=== PATIENT | female | born 1950 | race Caucasian/White ===

== ENCOUNTER → 2024-03-04 08:13 | Outpatient (REF) | payer MEDICARE, BC, SELFPAY | LOC: HWRAD 08:13 | PROVIDERS: ATTENDING PHYSICIAN Nurse Practitioner Adult Health; FAMILY PHYSICIAN Nurse Practitioner | DX: N95.0 Postmenopausal bleeding (principal) | CPT/HCPCS: 76830; 76856 ==

== ENCOUNTER → 2024-06-20 08:45 | Outpatient (REF) | payer MEDICARE, BC, SELFPAY | LOC: CLAB 08:45 | PROVIDERS: ATTENDING PHYSICIAN Obstetrics & Gynecology Gynecology | DX: N95.0 Postmenopausal bleeding (principal) | CPT/HCPCS: 88305 ==

== ENCOUNTER → 2024-07-15 07:54 | Outpatient (REF) | payer MEDICARE, BC, SELFPAY | LOC: HWRCS 07:54 | PROVIDERS: ATTENDING PHYSICIAN Nurse Practitioner | DX: R01.1 Cardiac murmur, unspecified (principal) | CPT/HCPCS: 93306 ==

== ENCOUNTER → 2024-07-24 12:56 | Outpatient (REF) | payer MEDICARE, BC, SELFPAY | LOC: HWRAD 12:56 | PROVIDERS: ATTENDING PHYSICIAN Nurse Practitioner | DX: Z87.891 Personal history of nicotine dependence (principal); Z12.31 Encounter for screening mammogram for malignant neoplasm of breast | CPT/HCPCS: 71271 ==

== ENCOUNTER 2025-07-22 14:06 | Emergency (ER) | payer MEDICARE, BC, SELFPAY ==
[2025-07-22] VITALS (7 sets, daily range): BP systolic 120–135; BP diastolic 49–73
[2025-07-22 14:41] LABS: Hematocrit 40.4 % (37.0-47.0); Hemoglobin 13.4 g/dL (12.0-16.0); Mean Corp Hgb Conc. 33.2 g/dL (33.0-37.0); Mean Corpuscular Volume 91.4 fL (81.0-99.0); Nucleated Red Blood Cells % 0 %; Platelet Count 203 10^3/uL (130-400); Red Cell Dist. Width 12.5 % (11.5-14.5)
[2025-07-22 15:04] LABS: Troponin I < 0.012 ng/ml
[2025-07-22 15:14] LABS: ALT (SGPT) 12 U/L (0-35); AST (SGOT) 15 U/L (14-36); Albumin 3.8 g/dl (3.5-5.0); Alkaline Phosphatase 58 U/L (38-126); Blood Urea Nitrogen 21 mg/dl (7-17); Calcium 9.5 mg/dl (8.4-10.2); Carbon Dioxide 28 mmol/L (22-30); Chloride 106 mmol/L (98-107); Estimated Creatinine Clearance 62 ml/min; Glucose 96 mg/dl (70-99); Potassium 4.0 mmol/L (3.5-5.1); Sodium 137 mmol/L (135-145); Total Protein 6.3 g/dl (6.3-8.2); eGFR > 60.00
--- NOTE | 2025-07-22 15:48 | ED.GENMED ---
History of Present Illness
<AMBROSIO Bennett - Last Filed: 07/22/25 16:55>
General
Chief Complaint: Fainting/Passed Out
Source: patient and spouse
Exam Limitations: none
Time Seen by Provider: 07/22/25 15:18
Nursing documentation reviewed up to this point in time: agreed with
History of Present Illness
History of Present Illness:
Patient is a 74 year old female with no significant PMH who presents to the ED via EMS following a syncopal episode at home. She states she felt dizzy following a shower and was able to safely make it to the bed before losing consciousness.
states a brief episode of unconsciousness before a return to baseline. There was no postictal period reported. Patient reports a similar incident approximately one year ago and currently follows with cardiology.
Past History
<AMBROSIO Bennett - Last Filed: 07/22/25 16:55>
Past History
ED Past Surgical History: (x2)
Patient has exhibited threatening behavior?: No
Social History
Drug: None
Personal:
Living: with family
Review of Systems
<AMBROSIO Bennett - Last Filed: 07/22/25 16:55>
Review of Systems
Allergies reviewed?: Yes
All Other Systems: ROS reviewed and negative except as documented in HPI and ROS
Constitutional: Reports no symptoms
EENT: Reports no symptoms
Respiratory: Reports no symptoms
Cardiac: Reports syncope; Denies chest pain, diaphoresis or palpitations
ABD/GI: Reports no symptoms
: Reports no symptoms
Musculoskeletal: Reports no symptoms
Skin: Reports no symptoms
Neurological: Reports no symptoms
Phy Exam
<AMBROSIO Bennett - Last Filed: 07/22/25 16:55>
General Physical Exam
General Presentation: no apparent distress
General Skin: warm and dry
General Habitus: normal
General Mental: alert
Cardiovascular Exam
Cardiovascular Exam: regular rate/rhythm and systolic murmur (mitral regurgitation)
Systolic Murmur: 2/6
Heart Sounds: normal
Pulmonary Exam
Pulmonary Exam: lungs clear and no respiratory distress
Oxygen Status: room air
Cough: no cough
Neurological Exam
Neurological Exam: oriented x3
Course
<AMBROSIO Bennett - Last Filed: 07/22/25 16:55>
Orders/Labs/Results
Orders:
Orders
07/22/25 14:08
Electrocardiogram (*1) Urgent
Reason for Study: Syncope
07/22/25 14:09
EKG- Treatment ONCE
07/22/25 14:18
CMP [Comprehensive Metabolic Panel] Urgent
Complete Blood Count/With Diff Urgent
Troponin I Urgent
Abnormal Lab Results
07/22/25
14:18
MPV 11.6 H fL
(7.4-10.4)
Absolute Lymphs (auto) 1.0 L 10^3/uL
(1.2-3.4)
Neutrophils % 75.6 H %
(42.2-75.2)
Lymphocytes % 14.5 L %
(20.5-51.1)
BUN 21 H mg/dl
(7-17)
07/22/25 14:18
07/22/25 14:18
Vital Signs
Initial and Last Documented VS:
Initial Vital Signs
Pulse Resp
65 16
07/22/25 14:09 07/22/25 14:09
Last Documented Vital Signs
Temp Pulse Resp BP Pulse Ox
36.6 C 69 20 129/62 99
07/22/25 16:30 07/22/25 16:45 07/22/25 16:45 07/22/25 16:00 07/22/25 16:45
<Sourav Palomino MD - Last Filed: 07/22/25 20:35>
Orders/Labs/Results
Orders:
Orders
07/22/25 14:08
Electrocardiogram (*1) Urgent
Reason for Study: Syncope
07/22/25 14:09
EKG- Treatment ONCE
07/22/25 14:18
CMP [Comprehensive Metabolic Panel] Urgent
Complete Blood Count/With Diff Urgent
Troponin I Urgent
Abnormal Lab Results
07/22/25
14:18
MPV 11.6 H fL
(7.4-10.4)
Absolute Lymphs (auto) 1.0 L 10^3/uL
(1.2-3.4)
Neutrophils % 75.6 H %
(42.2-75.2)
Lymphocytes % 14.5 L %
(20.5-51.1)
BUN 21 H mg/dl
(7-17)
07/22/25 14:18
07/22/25 14:18
Vital Signs
Initial and Last Documented VS:
Initial Vital Signs
Pulse Resp
65 16
07/22/25 14:09 07/22/25 14:09
Last Documented Vital Signs
Temp Pulse Resp BP Pulse Ox
36.6 C 69 20 129/62 99
07/22/25 16:30 07/22/25 16:45 07/22/25 16:45 07/22/25 16:00 07/22/25 16:45
<AMBROSIO Bennett - Last Filed: 07/22/25 16:55>
MDM/Problems Addressed
Differential Diagnosis Includes:
vasovagal syncope, dehydration, arrhythmia, seizure, hypoglycemia
<AMBROSIO Bennett - Last Filed: 07/22/25 16:55>
*Pulse Oximetry
SaO2: 100
Oxygen Mode of Delivery: Room air
Patient hypoxic: no
*Critical Care Note
Total Time (30-74mins, 75-104mins- exclusive of procedures): Not Applicable
ED Attending Note
<AMBROSIO Bennett - Last Filed: 07/22/25 16:55>
-
Portions of this chart may have been created with voice recognition software.� Occasional wrong word or��sound alike� substitutions may have occurred due to the inherent limitations of voice recognition software.
<Sourav Palomino MD - Last Filed: 07/22/25 20:35>
ED Attending Note
ED Attending Note:
Student note�for learning purposes only. Please see separate note written by me for documentation purposes.
Discharge Plan
Departure
Patient Disposition: Home (Routine Discharge)
Date of Disposition: 07/22/25
Time of Disposition: 16:49
Patient with high blood pressure during this ER visit?: No
Discharge Problem:
Syncope
Instructions: Syncope (Fainting) (DC)
Referrals:
Sherine Marlow CRNP [Family Provider, General] - Follow up in 1 week
Activity Restrictions/Additional Instructions:
Thank you for visiting the Emergency Department at [facility].
1. Please schedule a follow up appointment as directed. Call first thing tomorrow morning to make an appointment.
2. If indicated, please take your medications as instructed and indicated on discharge paperwork.
3. If any of your symptoms do not improve, or persist, or become more severe within 6-12 hours, please return to the emergency department for further care.
4. Please return to the emergency department if you develop a headache, neck pain/stiffness, fever greater than 100.4F, chest pain, shortness of breath, persistent nausea, vomiting, slurred speech, difficulty walking, numbness/tingling, weakness,
signs of infection or any other symptoms that are worrisome to you.
Please call [phone] if you have any questions.
Interventions
Interventions:
*Risk Screen - Suicide Last Done: 07/22/25 14:13
*General Assessment Last Done: 07/22/25 14:13
*Neglect/Abuse Screening Last Done: 07/22/25 14:13
*ED- Fall Risk Assessment Last Done: 07/22/25 14:13
*ED COVID-19 Vaccine History Last Done: 07/22/25 14:13
*Nursing Disposition Last Done: 07/22/25 17:01
ED- Cardiac Assessment Last Done: 07/22/25 14:15
ED- Neurological Assessment Last Done: 07/22/25 14:15
Discharge Date and Time
Discharge Date/Time: 07/22/25 17:02
Print Language: BOLIVIAN
--- NOTE | 2025-07-22 20:35 | ED.GENMED ---
History of Present Illness
General
Chief Complaint: Fainting/Passed Out
Source: patient and spouse
Exam Limitations: none
Time Seen by Provider: 07/22/25 15:18
Nursing documentation reviewed up to this point in time: agreed with
History of Present Illness
History of Present Illness:
74-year-old female with no reported chronic medical issues presents to the ER for evaluation after syncopal episode. Patient reports that she was in her normal state of health this morning, went for a walk with her . She says that she took
a shower and when she got out of the shower she was sitting on the toilet putting on lotion when she began to feel lightheaded. She got up and walked to her bed and when she got to the bed she felt lightheaded and passed out backwards onto the bed.
Did not fall or have any traumatic injury. heard her and came to the room and found her on the bed says that she was passed out for 5 to 10 seconds. called EMS, says shortly thereafter patient was up and walking around. Per EMS
on their arrival patient did have some dizziness with positional changes. Patient denies any associated headache, chest pain, palpitations. She denies feeling short of breath. Here in the emergency room she is completely asymptomatic and says
that she feels fine. She has never had similar symptoms in the past. There was no report of tongue biting, says that he did notice some jerking of the arms but patient says that she remembers the event and there was no described postictal
period.
Past History
Past History
ED Past Surgical History: (x2)
Patient has exhibited threatening behavior?: No
Social History
Drug: None
Personal:
Living: with family
Review of Systems
Review of Systems
All Other Systems: ROS reviewed and negative except as documented in HPI and ROS
Constitutional: Denies fever
Respiratory: Denies trouble breathing
Cardiac: Reports syncope; Denies chest pain or palpitations
ABD/GI: Denies abdominal pain, nausea or vomiting
: Denies flank pain
Musculoskeletal: Denies neck pain or back pain
Neurological: Denies headache, weakness or numbness
Phy Exam
Physical Exam
Physical Exam:
General: Awake, alert, oriented x3; no acute distress
Head: Normocephalic, atraumatic
Eyes: Conjunctiva normal, EOMI, pupils equal round and reactive to light bilaterally
Throat: Airway intact, handling secretions
Neck: Trachea midline, supple without meningismus
Lungs: Clear to auscultation bilaterally, no wheezing, rales, rhonchi
Heart: Regular rate and rhythm, no murmurs, gallops, or rubs appreciated
Abd: Soft, non distended, nontender with no masses appreciated
Neuro: Cranial nerves intact, speech fluid, motor and sensory intact in all extremities
Skin: No rash, no signs of trauma
Extremities: No edema in extremities, equal pulses in all extremities
Scores
Heart Failure Risk
Heart Failure Risk Score: Not Applicable
Heart Score for Chest Pain Patients
STEMI patient?: Not applicable
Withdrawal Assessment of Alcohol
Withdrawal Assessment Completed?: Not applicable
Course
Orders/Labs/Results
Orders:
Orders
07/22/25 14:08
Electrocardiogram (*1) Urgent
Reason for Study: Syncope
07/22/25 14:09
EKG- Treatment ONCE
07/22/25 14:18
CMP [Comprehensive Metabolic Panel] Urgent
Complete Blood Count/With Diff Urgent
Troponin I Urgent
Abnormal Lab Results
07/22/25
14:18
MPV 11.6 H fL
(7.4-10.4)
Absolute Lymphs (auto) 1.0 L 10^3/uL
(1.2-3.4)
Neutrophils % 75.6 H %
(42.2-75.2)
Lymphocytes % 14.5 L %
(20.5-51.1)
BUN 21 H mg/dl
(7-17)
07/22/25 14:18
07/22/25 14:18
Vital Signs
Initial and Last Documented VS:
Initial Vital Signs
Pulse Resp
65 16
07/22/25 14:09 07/22/25 14:09
Last Documented Vital Signs
Temp Pulse Resp BP Pulse Ox
36.6 C 69 20 129/62 99
07/22/25 16:30 07/22/25 16:45 07/22/25 16:45 07/22/25 16:00 07/22/25 16:45
MDM/Problems Addressed
Differential Diagnosis Includes:
Vasovagal syncope, postural/orthostatic syncope, dehydration, electrolyte derangement, dysrhythmia
MDM/Problems Addressed:
74-year-old female presents for evaluation after syncopal episode�took a shower and then shortly thereafter became lightheaded and passed out. She feels well here in the emergency room no acute complaints. Vital signs and exam as above. Labs were
sent off including a CBC and a CMP which showed no clinically significant abnormalities. Troponin undetectable. EKG shows sinus rhythm with right bundle branch block, no QT prolongation, no delta wave, no Brugada. Low suspicion for emergent cause
of syncope suspect it could be vasovagal likely some element of dehydration she says she went for a long walk with her did not drink much water today. Stable for discharge follow-up with primary doctor. Patient comfortable with this plan
and in fact this is her preference. All questions answered.
*Pulse Oximetry
SaO2: 99
Oxygen Mode of Delivery: Room air
Patient hypoxic: no (99%)
*EKG
Interpreted by ED Provider?: Yes
Heart Rate: 63
Rate: normal
Rhythm: sinus
Winger: left axis deviation
Interval: normal interval
QRS Pattern: right bundle branch block
Ischemia: no ischemia
*Critical Care Note
Total Time (30-74mins, 75-104mins- exclusive of procedures): Not Applicable
Data Reviewed
Source: patient and spouse
Patient Management
Escalation/DeEscalation of care consider admission/obs:
Considered admission�patient prefers discharge
ED Attending Note
-
Portions of this chart may have been created with voice recognition software.� Occasional wrong word or��sound alike� substitutions may have occurred due to the inherent limitations of voice recognition software.
Discharge Plan
Departure
Patient Disposition: Home (Routine Discharge)
Date of Disposition: 07/22/25
Time of Disposition: 16:49
Patient with high blood pressure during this ER visit?: No
Discharge Problem:
Syncope
Instructions: Syncope (Fainting) (DC)
Referrals:
Sherine Marlow CRNP [Family Provider, General] - Follow up in 1 week
Activity Restrictions/Additional Instructions:
Thank you for visiting the Emergency Department at [facility].
1. Please schedule a follow up appointment as directed. Call first thing tomorrow morning to make an appointment.
2. If indicated, please take your medications as instructed and indicated on discharge paperwork.
3. If any of your symptoms do not improve, or persist, or become more severe within 6-12 hours, please return to the emergency department for further care.
4. Please return to the emergency department if you develop a headache, neck pain/stiffness, fever greater than 100.4F, chest pain, shortness of breath, persistent nausea, vomiting, slurred speech, difficulty walking, numbness/tingling, weakness,
signs of infection or any other symptoms that are worrisome to you.
Please call [phone] if you have any questions.
Interventions
Interventions:
*Risk Screen - Suicide Last Done: 07/22/25 14:13
*General Assessment Last Done: 07/22/25 14:13
*Neglect/Abuse Screening Last Done: 07/22/25 14:13
*ED- Fall Risk Assessment Last Done: 07/22/25 14:13
*ED COVID-19 Vaccine History Last Done: 07/22/25 14:13
*Nursing Disposition Last Done: 07/22/25 17:01
ED- Cardiac Assessment Last Done: 07/22/25 14:15
ED- Neurological Assessment Last Done: 07/22/25 14:15
Discharge Date and Time
Discharge Date/Time: 07/22/25 17:02
Print Language: ESTONIAN
== END 2025-07-22 17:02 | disposition home or self-care (01) ==
LOC: EMR 14:06
PROVIDERS: Emergency Medicine; EMERGENCY PHYSICIAN Emergency Medicine; FAMILY PHYSICIAN Nurse Practitioner Adult Health
DX: R55 Syncope and collapse (principal)
CPT/HCPCS: 99284; 80053; 84484; 85025; 93005

== ENCOUNTER → 2025-07-27 10:06 | Outpatient (REF) | payer MEDICARE, BC, SELFPAY | LOC: HWRAD 10:06 | PROVIDERS: ATTENDING PHYSICIAN Internal Medicine; FAMILY PHYSICIAN Nurse Practitioner Adult Health | DX: Z87.891 Personal history of nicotine dependence (principal) | CPT/HCPCS: 71271 ==

== ENCOUNTER → 2025-09-30 14:16 | Outpatient (REF) | payer MEDICARE, BC, SELFPAY | LOC: HWWDC 14:16 | PROVIDERS: ATTENDING PHYSICIAN Nurse Practitioner Adult Health | DX: Z12.31 Encounter for screening mammogram for malignant neoplasm of breast (principal); Z78.0 Asymptomatic menopausal state | CPT/HCPCS: 77063; 77067; 77080 ==